=== PATIENT | male | born 1960 | race Two or more races ===

== ENCOUNTER → 2024-08-06 | Outpatient (CLI) | payer MEDICAID, SELFPAY ==
--- NOTE | 2024-08-06 13:00 | XR_ITS ---
Examination: Testicular sonography complete TECHNIQUE: Grayscale sonographic images testes, assessment arterial inflow venous outflow Doppler spectral analysis carful analysis Exam date and time: August 06, 2024 1358 hours INDICATIONS: Episode of the lateral is permeative several weeks ago, history testicular surgery to remove hydrocele one year ago FINDINGS: Right testis 4.1 x 3.3 x 3.1 cm Epididymis 13 mm 16mm epididymal cyst Arterial flow testicle. No testicular mass Moderate varicocele Left testis 4.5 x 3.0 x 3.0 cm Epididymis 16mm Arterial flow testicle. No testicular mass Mild hydrocele IMPRESSION: No testicular torsion or testicular mass Small benign right epididymal cyst Moderate right varicocele
== END | disposition home or self-care (01) ==
LOC: CDIM 13:36
PROVIDERS: Referring Provider Nurse Practitioner Family; Visit Provider Nurse Practitioner Family
DX: Z98.890 Other specified postprocedural states (principal); L72.0 Epidermal cyst; I86.1 Scrotal varices
CPT/HCPCS: 76870